=== PATIENT | male | born 1975 | race Two or more races ===

== ENCOUNTER 2017-07-07 20:53 | Emergency (ER) | payer OTHER ==
[~2017-07-07] VITALS: Ht 172.7 cm; Wt 122.5 kg
[~2017-07-07 20:53] MED LIST: CEFADROXIL500 MG PO
== END 2017-07-08 | disposition home or self-care (01) ==
LOC: ER 20:53
DX: S30.1XXA Contusion of abdominal wall, initial encounter (principal); S90.32XA Contusion of left foot, initial encounter; W18.39XA Other fall on same level, initial encounter; Y93.89 Activity, other specified; Y92.098 Other place in other non-institutional residence as the place of occurrence of the external cause; Y99.8 Other external cause status

== ENCOUNTER 2017-07-08 13:10 | Outpatient (CLI) | payer OTHER | END 2017-07-08 17:00 | disposition home or self-care (01) | LOC: TOM 13:10 | DX: G89.11 Acute pain due to trauma (principal) ==

== ENCOUNTER → 2018-12-03 | Emergency (ER) | payer OTHER ==
[~2018-12-03] VITALS: Ht 172.7 cm; Wt 122.5 kg
[~2018-12-03] MED LIST changes: +AMOXICILLIN500 MG; +CLARITHROMYCIN500 MG; +ENALAPRIL MALEA10 MG; +OMEPRAZOLE40 MG
== END | disposition home or self-care (01) ==
LOC: ER 21:05
DX: L03.116 Cellulitis of left lower limb (principal)

== ENCOUNTER 2018-12-09 23:06 | Inpatient (IN) | payer OTHER ==
[~2018-12-09] VITALS: Ht 172.7 cm; Wt 122.5 kg
[~2018-12-09 23:06] MED LIST changes: -CLARITHROMYCIN500 MG; +CLARITHROMYCIN500 MG PO; -ENALAPRIL MALEA10 MG; +ENALAPRIL MALEA10 MG PO
--- NOTE | 2018-12-09 23:22 | NUR ---
SE RECIBE PTE ALERTA Y ORIENTADO POR BALBIR. PTE REFIERE YESSY SUFRIDO CAIDA EL MIERCOLES DE LA SEMANA PASADA Y QUE EL LUNES LE COMENZO A SUPURAR SECRESIONES POR TIFFANY HERIDA EN LA RODILLA IZQUIERDA.
--- NOTE | 2018-12-10 02:31 | NUR ---
SE ORIENTA PT SOBRE TX MEDICO EL CUAL REFIERE ENTENDER.SE LE EXTRAEN MUESTRAS.SE CANALIZA Y SE ADMINISTRA MEDICAMENTO KANWAL ORDEN MEDICA.
== END 2018-12-20 14:35 | disposition home or self-care (01) | DRG 989 ==
LOC: ER 23:06 → MEDJ 12-10 12:45 → SURH 12-10 12:45 → SURG 12-10 12:45 → MEDJ 12-10 18:50 → SURH 12-10 19:15 → MEDI 12-14 20:03 → MEDJ 12-15 18:30
PROVIDERS: Specialist; ADMIT Specialist/Technologist, Other Nephrology
PROC: 0SCD0ZZ Extirpation of Matter from Left Knee Joint, Open Approach (ICD-10-PCS; principal; 2018-12-16 19:00)
DX: L03.116 Cellulitis of left lower limb (principal); E66.09 Other obesity due to excess calories; I10 Essential (primary) hypertension; S81.821S Laceration with foreign body, right lower leg, sequela; B96.89 Other specified bacterial agents as the cause of diseases classified elsewhere

== ENCOUNTER → 2019-05-31 | Emergency (ER) | payer OTHER ==
[~2019-05-31] VITALS: Ht 172.7 cm; Wt 122.5 kg
[~2019-05-31] MED LIST changes: +KETO10TA2 PO; +NORFLEX100MG PO
== END | disposition home or self-care (01) ==
LOC: ER 21:17
DX: M54.5 Low back pain (principal)

== ENCOUNTER 2020-09-05 23:25 | Emergency (ER) | payer OTHER ==
[~2020-09-05] VITALS: Ht 172.7 cm; Wt 121.6 kg
[2020-09-06] MEDS ORDERED: NAPROXEN SODIU550 MG PO ×2 (02:01→02:02)
[2020-09-06] MEDS ORDERED: CEPHALEXIN500 M1 PO ×2 (02:02)
== END 2020-09-06 02:08 | disposition home or self-care (01) ==
LOC: ER 23:25
DX: S93.401A Sprain of unspecified ligament of right ankle, initial encounter (principal); X50.0XXA Overexertion from strenuous movement or load, initial encounter; Y93.89 Activity, other specified; Y92.89 Other specified places as the place of occurrence of the external cause; Y99.8 Other external cause status

== ENCOUNTER 2023-11-04 15:48 | Outpatient (CLI) | payer OTHER ==
[~2023-11-04 15:48] MED LIST changes: +CEPHALEXIN500 M1 PO; +NAPROXEN SODIU550 MG PO
== END 2023-11-04 15:49 | disposition home or self-care (01) ==
LOC: RAD 15:48
DX: M25.50 Pain in unspecified joint (principal)

== ENCOUNTER 2023-11-27 12:11 | Emergency (ER) | payer OTHER ==
[~2023-11-27] VITALS: Ht 172.7 cm; Wt 108.0 kg
[2023-11-27] MEDS ORDERED: cloNIDine HCL 0.2 MG TABLET PO ONE (12:45)
[2023-11-27] MEDS ORDERED: CLONIDINE HCL 0.1 MG TABLET PO ONE (12:48)
== END 2023-11-27 14:18 | disposition home or self-care (01) ==
LOC: ER 12:12
DX: I10 Essential (primary) hypertension (principal)